=== PATIENT | female | born 1965 | race Caucasian/White ===

== ENCOUNTER 2017-08-19 07:59 | Day surgery (SDC) | payer OTHER ==
[~2017-08-19] VITALS: Ht 157.5 cm; Wt 92.1 kg
[2017-08-19] MEDS ORDERED: NAPROXEN (08:34)
[2017-08-19 08:37] VITALS: Ht 157.5 cm; Wt 92.1 kg
[2017-08-19 09:03] VITALS: BP 108/69; PULSE 77; RESP 11
[2017-08-19] MEDS ORDERED: LIDOCAINE 2% (SDV) 5 ML INJ ONE (09:09)
[2017-08-19] MEDS ORDERED: PROPOFOL 40 ML ONE (09:09)
--- NOTE | 2017-08-19 09:41 | OPPN ---
Date/Time of Note Date/Time of Note DATE: 08/19/17 TIME: 09:40 Operative Report Preoperative Diagnosis Chronic heartburn Screening Postoperative Diagnosis Gastroesophageal reflux disease Bile reflux gastritis Ulcer on the gastric antrum Internal hemorrhoids No colon neoplasm was identified Operation/Procedure Performed Esophagogastroduodenoscopy and biopsy Colonoscopy Surgeon see signature line assistant professor None Anesthesia: MAC Estimated blood loss: none Transfusion Required none Specimen Biopsy of gastric ulcer Grafts/Implants none Complications none MASOOD ARDON MD Aug 19, 2017 09:41
--- NOTE | 2017-08-19 10:26 | GILP ---
DATE OF PROCEDURE: NAME OF PROCEDURES: 1. Esophagogastroduodenoscopy and biopsy. 2. Colonoscopy. SURGEON: Masood Zapata MD PREOPERATIVE DIAGNOSES: 1. Chronic heartburn. 2. Screening colonoscopy. POSTOPERATIVE DIAGNOSES: 1. Gastroesophageal reflux disease. 2. Bile reflux gastritis with erosions. 3. Gastric ulcer on the antrum, the prepyloric area and biopsies were taken for histopathology. 4. Colonoscopy all the way to the cecum. 5. Internal hemorrhoids. 6. No colon neoplasm was identified. INDICATION FOR THE PROCEDURE: Ms. Cata Bustamante is a 51-year-old female patient who had chronic hea rtburn, not responding to therapy. The patient also needed a screening colonoscopy. The procedures and possible complications were well explained to the patient, she understood and con sented to the procedure. DESCRIPTION OF PROCEDURE: Under the influence of anesthesia, the gastroscope was carefully introduc ed into the esophagus and under direct vision it was advanced to the stomach and through the pylorus into the duodenal bulb and descending duodenum. FINDINGS: ESOPHAGUS: The patient had gastroesophageal reflux disease. STOMACH: She had bile reflux gastritis with erosions. She also had an ulcer on the gastric antrum, the prepyloric area and biopsies were taken for histopathology. DUODENUM: Normal. The colonoscope was carefully introduced in the rectum and under direct vision it was advanced all t he way to the cecum. FINDINGS: The patient had internal hemorrhoids. No colon neoplasm was identified. She tolerated the procedures very well and there was no complication from the procedures. At the en d of the procedures, she was awake with stable vital signs and she was discharged home to the care o f her family. IMPRESSION: Please see postoperative diagnoses. PLAN: 1. Omeprazole 40 mg p.o. q.a.m. 2. Carafate 1 g p.o. t.i.d. a.c. 3. Await histopathology reports. 4. Next screening colonoscopy in 10 years. Dictated By: MASOOD RAPP/EILEEN Conf#: [id number] DID#: [id number]
== END 2017-08-19 10:44 | disposition home or self-care (01) ==
LOC: GIL 07:59
PROVIDERS: ATTEND Internal Medicine Gastroenterology
DX: Z12.11 Encounter for screening for malignant neoplasm of colon (principal); K31.9 Disease of stomach and duodenum, unspecified; K21.9 Gastro-esophageal reflux disease without esophagitis; K29.60 Other gastritis without bleeding; K25.9 Gastric ulcer, unspecified as acute or chronic, without hemorrhage or perforation; K64.8 Other hemorrhoids; E66.9 Obesity, unspecified; Z68.37 Body mass index [BMI] 37.0-37.9, adult
CPT/HCPCS: 88305; 88312